=== PATIENT | male | born 1965 | race Two or more races ===

== ENCOUNTER 2019-12-15 06:53 | Outpatient (REF) | payer OTHER, SELFPAY | END 2019-12-15 06:54 | disposition home or self-care (01) | LOC: HO.LAB 06:53 | PROVIDERS: PCP Family Medicine; Visit Provider Internal Medicine | DX: Z20.828 Contact with and (suspected) exposure to other viral communicable diseases (principal) | CPT/HCPCS: 36415; 87635 ==

== ENCOUNTER 2020-03-24 10:10 | Outpatient (REF) | payer OTHER, SELFPAY ==
--- NOTE | 2020-03-24 10:16 | XR_ITS ---
EXAMINATION: XR HAND, RIGHT XR HAND, LEFT CLINICAL INFORMATION: Pain bilateral hands COMPARISON: Radiographs right hand 06/11/2017 TECHNIQUE: Each hand is imaged in 3 views. There are a total of 6 views. FINDINGS: Right hand: There is no acute or healing fracture, dislocation, or destructive process. Bony mineralization appears normal. There is no periarticular demineralization. There is some minor spurring base distal phalanges. No joint narrowing or erosive change. There is a punctate density lateral side fourth finger adjacent to neck middle phalanx similar to prior exam 06/11/2017. Left hand: There is no acute or healing fracture, dislocation, or destructive process. Bony mineralization appears normal. There is no periarticular demineralization. There is some minor spurring base distal phalanges. No joint narrowing or erosive change. There are 2 punctate soft tissue densities adjacent to head first proximal phalanx. XR/XR hand LT min 3V IMPRESSION: 1. Minor spurring base distal phalanges. 2. No joint narrowing or erosive change.
--- NOTE | 2020-03-24 10:16 | XR_ITS ---
EXAMINATION: XR HAND, RIGHT XR HAND, LEFT CLINICAL INFORMATION: Pain bilateral hands COMPARISON: Radiographs right hand 06/11/2017 TECHNIQUE: Each hand is imaged in 3 views. There are a total of 6 views. FINDINGS: Right hand: There is no acute or healing fracture, dislocation, or destructive process. Bony mineralization appears normal. There is no periarticular demineralization. There is some minor spurring base distal phalanges. No joint narrowing or erosive change. There is a punctate density lateral side fourth finger adjacent to neck middle phalanx similar to prior exam 06/11/2017. Left hand: There is no acute or healing fracture, dislocation, or destructive process. Bony mineralization appears normal. There is no periarticular demineralization. There is some minor spurring base distal phalanges. No joint narrowing or erosive change. There are 2 punctate soft tissue densities adjacent to head first proximal phalanx. XR/XR hand RT min 3V IMPRESSION: 1. Minor spurring base distal phalanges. 2. No joint narrowing or erosive change.
== END 2020-03-24 10:11 | disposition home or self-care (01) ==
LOC: HO.XRAY 10:10
PROVIDERS: PCP Family Medicine; Visit Provider Family Medicine
DX: M79.641 Pain in right hand (principal); M79.642 Pain in left hand; R20.0 Anesthesia of skin
CPT/HCPCS: 73130

== ENCOUNTER 2020-04-12 08:35 | Outpatient (REF) | payer OTHER, SELFPAY ==
--- NOTE | 2020-04-12 10:07 | XR_ITS ---
EXAMINATION: XR ABDOMEN WITH DECUBITUS VIEWS CLINICAL INDICATION: Abdominal distention. COMPARISON: CT abdomen/dated 03/08/2019. TECHNIQUE: Upright and supine views of the abdomen were obtained. FINDINGS: Qpxq-en-cyjyqmjt stool burden. Nonobstructive bowel gas pattern. No intra-abdominal free air. No abnormal soft tissue calcification. No acute osseous abnormality. XR/XR abdomen w decubitus IMPRESSION: Fyon-[id number] stool burden.
== END 2020-04-12 08:36 | disposition home or self-care (01) ==
LOC: HO.XRAY 08:35
PROVIDERS: PCP Family Medicine; Visit Provider Nurse Practitioner
DX: R14.0 Abdominal distension (gaseous) (principal)
CPT/HCPCS: 74021; 99212

== ENCOUNTER 2020-04-20 11:42 | Outpatient (REF) | payer OTHER, SELFPAY | END 2020-04-20 11:43 | disposition home or self-care (01) | LOC: HO.LAB 11:42 | PROVIDERS: Visit Provider Internal Medicine | DX: Z20.822 Contact with and (suspected) exposure to COVID-19 (principal) | CPT/HCPCS: 36415; C9803; U0003; U0005 ==

== ENCOUNTER 2020-04-27 10:50 | Outpatient (REF) | payer OTHER, SELFPAY ==
[2020-04-27 14:54] LABS: MANUAL DIFF FLAG NO
[2020-04-27 14:58] LABS: Basophils Percent Auto 0.3 % (0-2); Eosinophils Absolute Auto 0.1 X10*3/uL (0.0-0.4); Eosinophils Percent Auto 0.7 % (0-4); Hematocrit 46.3 % (42-52); Hemoglobin 15.4 g/dl (14.0-18.0); Imm Gran Abs Auto 0.02 X10*3/uL (0.00-0.03); Imm Gran Pct Auto 0.3 % (0.0-0.4); Lymphocytes Absolute Auto 2.4 X10*3/uL (1.2-4.9); Lymphocytes Percent Auto 32.6 % (20-40); Mean Corpuscular HGB Conc 33.3 g/dl (31.0-36.0); Mean Corpuscular Hemoglobin 29.8 pg (27.0-33.0); Mean Corpuscular Volume 89.7 fL (80-98); Mean Platelet Volume 9.8 fL (9.4-12.4); Monocytes Absolute Auto 0.9 X10*3/uL (0.1-1.2); Monocytes Percent Auto 12.6 % (2-11); Neutrophils Absolute Auto 3.9 X10*3/uL (2.0-8.3); Neutrophils Percent Auto 53.5 % (45-73); Platelet Count 278 X10*3/uL (160-400); Red Blood Count 5.16 X10*6/uL (4.60-5.80); Red Cell Distribution Width 13.1 % (11.0-16.0); White Blood Count 7.3 X10*3/uL (4.8-10.8)
[2020-04-27 15:25] LABS: Alanine Aminotransferase 85 U/L (0-40); Albumin Level 4.2 g/dL (3.5-5.0); Alkaline Phosphatase 53 U/L (39-117); Amylase 79 U/L (28-100); Anion Gap 13 (12-20); Aspartate Amino Transferase 47 U/L (5-37); Bilirubin Total 0.7 mg/dL (0.0-1.0); Blood Urea Nitrogen 16 mg/dL (9-16); C Reactive Protein 0.26 mg/dL (< or = 0.50); Calcium 8.9 mg/dL (8.4-10.2); Carbon Dioxide 33 mmol/L (22-29); Chloride 96 mmol/L (96-108); Estimated Glomerular Filt Rate 57; Glucose Random 82 mg/dL (60-115); Lactate Dehydrogenase 188 U/L (118-273); Lipase 47 U/L (8-78); Potassium 3.5 mmol/L (3.3-5.1); Sodium 138 mmol/L (135-145); Total Protein 7.6 g/dL (6.5-8.0)
[2020-04-27 15:47] LABS: TSH reflex Free T4 1.42 uIU/mL (0.32-4.0)
== END 2020-04-27 10:51 | disposition home or self-care (01) ==
LOC: HO.LAB 10:50
PROVIDERS: PCP Family Medicine; Visit Provider Nurse Practitioner
DX: R10.10 Upper abdominal pain, unspecified (principal); R14.0 Abdominal distension (gaseous)
CPT/HCPCS: 36415; 80053; 82150; 83615; 83690; 84443; 85025; 86140; 99212

== ENCOUNTER 2020-05-07 08:38 | Outpatient (REF) | payer OTHER, SELFPAY ==
--- NOTE | ~2020-05-07 | US_ITS ---
EXAMINATION: US ABDOMEN COMPLETE CLINICAL INFORMATION: Upper abdominal pain. COMPARISON: CT abdomen 03/08/2019 TECHNIQUE: Real-time imaging of the abdominal viscera. FINDINGS: PANCREAS: The visualized head and body of the pancreas appears unremarkable. Remainder of the pancreas is obscured by bowel gas. ABDOMINAL AORTA: The proximal, mid, and distal segments are normal in caliber. INFERIOR VENA CAVA: Visualized portions are normal. LIVER: Diffuse increased echogenicity of the parenchyma. No focal lesions. No biliary duct dilatation. There are areas of fatty sparing. GALLBLADDER: Normal. The gallbladder is physiologically distended without evidence of stones, sludge, polyps, wall thickening, or pericholecystic fluid. COMMON BILE DUCT: Normal in caliber measuring 0.5 cm in diameter. RIGHT KIDNEY: Normal. No hydronephrosis. No renal calculi or focal parenchymal lesions. The kidney measures 11.2 cm in maximum dimension. LEFT KIDNEY: Normal. No hydronephrosis. No renal calculi or focal parenchymal lesions. The kidney measures 12.9 cm in maximum dimension. SPLEEN: Normal. The spleen measures 10.4 cm in maximum dimension. FREE FLUID: None. US/US abdomen complete IMPRESSION: 1. There is generalized increase in hepatic echotexture, more commonly seen with hepatic steatosis. No focal hepatic mass or intrahepatic biliary duct dilatation is seen. Areas of fatty sparing are noted. 2. Otherwise unremarkable study.
== END 2020-05-07 08:39 | disposition home or self-care (01) ==
LOC: HO.US 08:38
PROVIDERS: PCP Family Medicine; Visit Provider Nurse Practitioner
DX: R10.10 Upper abdominal pain, unspecified (principal)
CPT/HCPCS: 76700

== ENCOUNTER 2020-05-17 13:00 | Outpatient (RCR) | payer OTHER, SELFPAY | END 2020-06-01 14:20 | disposition home or self-care (01) | LOC: HO.PTCHIC 13:00 | PROVIDERS: PCP Family Medicine; Visit Provider Family Medicine | DX: R29.898 Other symptoms and signs involving the musculoskeletal system (principal) | CPT/HCPCS: 97110; 97162 ==

== ENCOUNTER → 2020-05-19 15:30 | Outpatient (BNVA) | payer OTHER, SELFPAY | PROVIDERS: PCP Family Medicine; Visit Provider Nurse Practitioner | DX: R10.10 Upper abdominal pain, unspecified (principal); D12.6 Benign neoplasm of colon, unspecified; R14.0 Abdominal distension (gaseous) | CPT/HCPCS: Q3014 ==

== ENCOUNTER → 2020-07-30 07:45 | Outpatient (REF) | payer OTHER, SELFPAY ==
--- NOTE | ~2020-07-30 | NM_ITS ---
EXAMINATION: NM RADIONUCLIDE SOLID FOOD GASTRIC EMPTYING 4-HOUR STUDY CLINICAL INFORMATION: Upper abdominal pain. COMPARISON: None TECHNIQUE: A standard meal consisting of 4 oz of Egg Beaters brand tagged with 0.77 microcuries Tc-99m Sulfur Colloid, 8 oz water and 2 slices of toast with jelly was administered orally to the patient. Images were obtained using a dual head gamma camera in the anterior and posterior projections over of the stomach immediately post ingestion and at hourly intervals up to 4 hours post ingestion. The anterior and posterior counts at each time interval were averaged using the geometric mean and expressed as percentage of the immediate post ingestion counts. FINDINGS: There is good visualization of activity in the stomach immediately post ingestion. As the study progresses, there is good clearance of activity from the stomach and visualization of progressively increasing small bowel activity. By the end of the study, there is almost no retention noted in the stomach. Retention in the stomach at each time interval was: 1 hour 69% (normal 37%-90%) 2 hours 58% (normal 30%-60%) 3 hours 33% 4 hours 3% (normal 0%-10%) NM/NM gastric emptying study IMPRESSION: Normal 4-hour solid food gastric emptying study.
== END ==
LOC: HO.NUCMED 07:45
PROVIDERS: PCP Family Medicine; Visit Provider Nurse Practitioner
DX: R10.10 Upper abdominal pain, unspecified (principal); R14.0 Abdominal distension (gaseous)
CPT/HCPCS: 78264; A9541

== ENCOUNTER → 2020-08-06 12:58 | Outpatient (BNVA) | payer OTHER, SELFPAY | PROVIDERS: PCP Family Medicine; Referring Provider Family Medicine; Visit Provider Nurse Practitioner | DX: R10.10 Upper abdominal pain, unspecified (principal); Z79.899 Other long term (current) drug therapy | CPT/HCPCS: 99212 ==

== ENCOUNTER 2020-09-08 05:56 | Outpatient (REF) | payer OTHER, SELFPAY ==
--- NOTE | ~2020-09-08 | CT_ITS ---
EXAMINATION: CT ABDOMEN AND PELVIS WITH CONTRAST CLINICAL INFORMATION: Abdominal pain COMPARISON: None TECHNIQUE: Multidetector volumetric images were obtained from the superior aspect of the liver through the pubic symphysis following administration 85 mL of Omnipaque 350 intravenous contrast. Sagittal and coronal reformatted images were obtained on the technologist's workstation. Oral contrast: No This CT examination was performed using dose optimization techniques as appropriate, variously including the following: *Automated exposure control *Adjustment of mA and/or kV according to patient size (this includes techniques or standardized protocols for targeted exams where dose is matched to indication/reason for exam; i.e. extremities or head) *Use of iterative reconstruction technique DLP: 483 mGy-cm FINDINGS: LUNG BASES: No acute process in the lung bases. There is a 6 mm nodule left lower lobe (axial image 3/3) and 4 mm subpleural nodule right middle lobe (axial image 4/3). The heart size is normal. LIVER, GALLBLADDER, AND BILIARY TREE: The liver is normal in size, shape, and diffuse hypoattenuation. There is focal fatty sparing adjacent to gallbladder in the caudate lobe. No biliary ductal dilatation is present. The gallbladder is unremarkable with no evidence of radiopaque gallstones, gallbladder wall thickening, or obvious pericholecystic inflammatory changes. PANCREAS: Unremarkable. SPLEEN: Unremarkable. ADRENAL GLANDS: Unremarkable. KIDNEYS AND URETERS: The kidneys are normal in size, shape, and attenuation. No hydronephrosis, hydroureter, or calculi seen. No perinephric stranding. Bilateral 2 to 3 mm hypodense areas in the kidneys likely small cysts; however, there are too small to correctly characterize. BLADDER: Unremarkable. GASTROINTESTINAL TRACT: There is scattered stool and gas seen throughout the colon without significant distention. Opacified small bowel loops are normal caliber. Appendix is normal caliber. ABDOMINAL WALL: No significant hernia is appreciated. LYMPH NODES: Normal. VASCULAR: The abdominal aorta is normal caliber. There is a retroaortic left renal vein. PELVIC VISCERA: The prostate gland is mildly enlarged with mild heterogeneity and punctate calcification in central gland. No free fluid. No inguinal or pelvic abnormal-sized lymph nodes. Prominent inguinal canals, right greater than left, with fat. CT/CT abdomen pelvis w con IMPRESSION: 1. Mild constipation. 2. Normal appendix. 3. No radiopaque urolith seen. 4. Hepatic steatosis with area of focal fatty sparing.
[2020-09-08 07:31] LABS: Blood Urea Nitrogen 12 mg/dL (9-16); Estimated Glomerular Filt Rate 55
[2020-09-08] MEDS: iohexoL 350 MG/ML 100 ML INFUS..BTL 85 ML IV (09:30)
== END 2020-09-08 05:57 | disposition home or self-care (01) ==
LOC: HO.CT 05:56
PROVIDERS: PCP Family Medicine; Visit Provider Nurse Practitioner
DX: R10.10 Upper abdominal pain, unspecified (principal)
CPT/HCPCS: 36415; 74177; 82565; 84520; Q9967

== ENCOUNTER 2020-09-09 10:53 | Outpatient (REF) | payer OTHER, SELFPAY | END 2020-09-09 10:54 | disposition home or self-care (01) | LOC: HO.LNP 10:53 | PROVIDERS: Visit Provider Nurse Practitioner | DX: R10.10 Upper abdominal pain, unspecified (principal) | CPT/HCPCS: 87338 ==

== ENCOUNTER 2020-12-01 14:13 | Emergency (ER) | payer OTHER, SELFPAY ==
[2020-12-01 14:46] VITALS: BP 134/83; PULSE 72; RESP 16; TEMP 36.6; O2SAT 98; BMI 30.7
--- NOTE | 2020-12-01 14:55 | ED.EXTPRO ---
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 He states that his knee pain has been present for about 3-4 months, however these past 5 days that has been worsening. He states that he sees orthopedics, for arthritis of the knee, they have previously given him steroid shots, which have helped him. He is waiting for his appointment with his orthopedist, for another steroid injection, however it is taking awhile due to COVID. He states that he uses a cane for walking, and it helps his pain. He has full range of motion to the right knee, but he states it just hurts when he moves it. The pain is worse with movement, better at rest. He also reports that the pain is worse at night. He denies fevers, chills, shortness of breath, chest pain, decreased range of motion. He denies a fall, and trauma to the area. MD Complaint: joint paint (right knee) Onset (ago): day(s) (5) Pain Consistency: constant Location: right Severity scale (1-10): 6 Quality: constant Radiation: none Relieving factors: rest Exacerbating factors: range of motion, weight bearing and walking Associated symptoms: denies other symptoms Related Data Home Medications Medication Instructions Recorded Confirmed chlorthalidone 25 mg tablet 25 mg PO DAILY 04/12/20 clonazepam 1 mg tablet 1 mg PO TID PRN 04/12/20 clonidine HCl 0.2 mg tablet 0.2 mg PO BID 04/12/20 cyclobenzaprine 5 mg tablet 5 mg PO TID PRN 04/12/20 diclofenac sodium 75 mg 75 mg PO BID 04/12/20 tablet,delayed release melatonin 5 mg tablet 10 mg PO BEDTIME 04/12/20 omeprazole 20 mg capsule,delayed 20 mg PO BID 04/12/20 release duloxetine 60 mg capsule,delayed mg PO 05/19/20 release zolpidem 10 mg tablet 10 mg PO BEDTIME PRN 05/19/20 zolpidem 5 mg tablet 5 mg PO BEDTIME PRN 08/06/20 Previous Rx's Medication Instructions Recorded barium sulfate 2 % (w/v) oral 150 ml PO ONCE 1 Days #300 ml 08/06/20 suspension (Readi-Cat 2) simethicone 180 mg capsule 180 mg PO QID 30 Days #120 cap 08/23/20 dicyclomine 10 mg capsule 10 mg PO TID #90 cap 09/21/20 xrzevi-kxzyslvh-tocgvmx 1 cap PO QID #120 cap 09/21/20 24,000-76,000-120,000 unit capsule,delayed rel (Creon) diclofenac sodium 1 % topical gel 2 g TOPICAL QID #100 g 12/01/20 (Voltaren Arthritis Pain) lidocaine 4 % topical patch 1 patch TOPICAL DAILY PRN #10 ea 12/01/20 Allergies Allergy/AdvReac Type Severity Reaction Status Date / Time No Known Allergies Allergy Verified 08/06/20 13:29 [No Known Allergies*] Review of Systems Review of Systems: Constitutional : No Fever, No Chills Cardiovascular : No Chest Pain, No SOB Respiratory : No Cough, No Sputum, No Wheezing Gastrointestinal : No Nausea, No Vomiting, No Diarrhea Genitourinary : No Dysuria, No Urinary Frequency, No Hematuria, Musculoskeletal : Positive joint pain (right knee), No Myalgias, No Joint Swelling Skin : No Skin Lesions, No rash Neuro : No Weakness, No Numbness, No Dizziness, No Headache PMFSH Past Medical History Surgical History Hx of colonoscopy Family History Family History Mother Diabetes Father Cancer Sister Cancer Brother Cancer Social History Social History Household Members: None Alcohol intake: current Alcohol intake frequency: 3 or more drinks per day Alcohol type: beer and wine Advance Directives: No Advance Directives Information Provided: Yes Physical Exam Vital Signs: Vital Signs: Last Vital Signs Temp 98 F 12/01/20 14:46 Pulse 72 12/01/20 14:46 Resp 16 12/01/20 14:46 BP 134/83 12/01/20 14:46 Pulse Ox 98 12/01/20 14:46 Body Mass Index 30.7 Appearance: Alert. Oriented X3. No acute distress. Eyes: Pupils equal, round and reactive to light. ENT: Pharynx normal. Neck: Normal inspection. Neck supple. CVS: Normal heart rate and rhythm. Pulses normal. Respiratory: No respiratory distress. Breath sounds normal. Abdomen: Soft and nontender. Skin: Skin warm and dry. Normal skin color. Normal skin turgor. Extremities: No lower extremity edema. No calf ttp, Positive painful/full range of motion to right knee, no overlying skin changes, calor or effusions noted - distal NV intact Neuro: Oriented X 3. No motor deficit. No sensory deficit. Course Course Course Narrative: 55-year-old male presenting to the emergency department with 5 days of worsening right knee pain. He states he has arthritis, is followed by an orthopedist, however he is waiting to get his 2nd steroid injection, do to long wait times because of COVID. He states he would like information for a new orthopedist. Pain is worse with walking better at rest, and worse at night. He uses a cane for ambulation. He denies any other concerns at this time. MDM - Extremity (Nontraumatic) MDM Narrative Medical decision making narrative: Based off of patient history, and physical examination there is no need to do imaging at this time. It is likely arthritis. Discharge Plan Discharge Clinical Impression: Arthralgia of knee, right Patient Disposition: Home, Self-Care Instructions: Arthralgia (ED) Additional Instructions: return to ED for any worsening symptoms or concerns Prescriptions: New lidocaine 4 % adhesive patch,medicated 1 patch topical DAILY PRN (Reason: pain) Qty: 10 RF: 0 diclofenac sodium [Voltaren Arthritis Pain] 1 % gel 2 g topical QID Qty: 100 RF: 0 No Action simethicone 180 mg capsule 180 mg PO QID 30 Days Qty: 120 RF: 3 Creon 24,000-76,000 -120,000 unit capsule,delayed release(DR/EC) 1 cap PO QID Qty: 120 RF: 3 dicyclomine 10 mg capsule 10 mg PO TID Qty: 90 RF: 3 omeprazole 20 mg capsule,delayed release(DR/EC) 20 mg PO BID RF: 0 cyclobenzaprine 5 mg tablet 5 mg PO TID PRNRF: 0 diclofenac sodium 75 mg tablet,delayed release (DR/EC) 75 mg PO BID RF: 0 clonidine HCl 0.2 mg tablet 0.2 mg PO BID RF: 0 chlorthalidone 25 mg tablet 25 mg PO DAILY RF: 0 clonazepam 1 mg tablet 1 mg PO TID PRN (Reason: anxiety) RF: 0 melatonin 5 mg tablet 10 mg PO BEDTIME RF: 0 zolpidem 10 mg tablet 10 mg PO BEDTIME PRN (Reason: insomnia) RF: 0 duloxetine 60 mg capsule,delayed release(DR/EC) PO RF: 0 zolpidem 5 mg tablet 5 mg PO BEDTIME PRNRF: 0 Readi-Cat 2 2 % (w/v) suspension 150 ml PO ONCE 1 Days Qty: 300 RF: 0 Referrals: Kd Fernandez MD [Physician] - 2 weeks (if not better) Print Language: Indonesian
== END 2020-12-01 15:26 | disposition home or self-care (01) ==
PROVIDERS: Emergency Provider Emergency Medicine; PCP Family Medicine
DX: M25.561 Pain in right knee (principal); Z79.899 Other long term (current) drug therapy
CPT/HCPCS: 99283

== ENCOUNTER 2020-12-02 08:16 | Outpatient (REF) | payer OTHER, SELFPAY ==
[2020-12-02 10:36] LABS: MANUAL DIFF FLAG NO
[2020-12-02 10:45] LABS: Basophils Percent Auto 0.4 % (0-2); Eosinophils Absolute Auto 0.1 X10*3/uL (0.0-0.4); Eosinophils Percent Auto 0.8 % (0-4); Hematocrit 47.5 % (42-52); Hemoglobin 16.1 g/dl (14.0-18.0); Imm Gran Abs Auto 0.01 X10*3/uL (0.00-0.03); Imm Gran Pct Auto 0.1 % (0.0-0.4); Lymphocytes Absolute Auto 2.3 X10*3/uL (1.2-4.9); Lymphocytes Percent Auto 29.7 % (20-40); Mean Corpuscular HGB Conc 33.9 g/dl (31.0-36.0); Mean Corpuscular Volume 88.5 fL (80-98); Mean Platelet Volume 9.8 fL (9.4-12.4); Monocytes Absolute Auto 0.9 X10*3/uL (0.1-1.2); Monocytes Percent Auto 11.7 % (2-11); Neutrophils Absolute Auto 4.3 X10*3/uL (2.0-8.3); Neutrophils Percent Auto 57.3 % (45-73); Platelet Count 286 X10*3/uL (160-400); Red Blood Count 5.37 X10*6/uL (4.60-5.80); Red Cell Distribution Width 13.2 % (11.0-16.0); White Blood Count 7.6 X10*3/uL (4.8-10.8)
[2020-12-02 11:14] LABS: Alanine Aminotransferase 90 U/L (0-40); Albumin Level 4.5 g/dL (3.5-5.0); Alkaline Phosphatase 58 U/L (39-117); Aspartate Amino Transferase 44 U/L (5-37); Bilirubin Direct 0.3 mg/dL (0.0-0.5); Bilirubin Total 0.6 mg/dL (0.0-1.0); Total Protein 7.9 g/dL (6.5-8.0)
[2020-12-02 12:16] LABS: Folate 10.5 ng/mL (> or = 4.0)
== END 2020-12-02 08:17 | disposition home or self-care (01) ==
LOC: HO.LAB 08:16
PROVIDERS: PCP Family Medicine; Referring Provider Family Medicine; Visit Provider Internal Medicine Gastroenterology
DX: R14.0 Abdominal distension (gaseous) (principal); D12.6 Benign neoplasm of colon, unspecified; K76.0 Fatty (change of) liver, not elsewhere classified; R79.89 Other specified abnormal findings of blood chemistry
CPT/HCPCS: 36415; 80076; 82746; 85025; 99212

== ENCOUNTER 2021-02-14 08:05 | Outpatient (REF) | payer OTHER, SELFPAY ==
[2021-02-14 09:00] LABS: COVID-19 Test Negative (Negative)
== END 2021-02-14 08:06 | disposition home or self-care (01) ==
LOC: HO.LAB 08:05
PROVIDERS: PCP Family Medicine; Visit Provider Internal Medicine
DX: Z20.822 Contact with and (suspected) exposure to COVID-19 (principal)
CPT/HCPCS: 36415; 87635; C9803

== ENCOUNTER 2021-03-31 09:05 | Outpatient (REF) | payer OTHER, SELFPAY ==
[2021-03-31 11:45] LABS: Lipase 72 U/L (8-78)
[2021-03-31 11:57] LABS: TSH reflex Free T4 1.21 uIU/mL (0.32-4.0)
[2021-04-01 13:41] LABS: Immunoglobulin A 539 mg/dL (47-310)
[2021-04-02 13:11] LABS: Transglutaminase Ab IgG <1.0 U/mL; Transglutaminase IgA <1.0 U/mL
== END 2021-03-31 09:06 | disposition home or self-care (01) ==
LOC: HO.LAB 09:05
PROVIDERS: PCP Family Medicine; Visit Provider Internal Medicine Gastroenterology
DX: R10.10 Upper abdominal pain, unspecified (principal); K52.9 Noninfective gastroenteritis and colitis, unspecified; D12.6 Benign neoplasm of colon, unspecified; R14.0 Abdominal distension (gaseous)
CPT/HCPCS: 36415; 82784; 83690; 84443; 86364; 99212

== ENCOUNTER 2021-04-01 09:42 | Outpatient (REF) | payer OTHER, SELFPAY ==
[2021-04-01 13:02] LABS: CDiff Gene PCR NEGATIVE (Negative)
[2021-04-05 20:46] LABS: Fecal Fat Qualitative Normal (Normal)
[2021-04-06 22:07] LABS: Pancreatic Elastase-1 >500 mcg/g
== END 2021-04-01 09:43 | disposition home or self-care (01) ==
LOC: HO.LNP 09:42
PROVIDERS: Visit Provider Internal Medicine Gastroenterology
DX: K52.9 Noninfective gastroenteritis and colitis, unspecified (principal)
CPT/HCPCS: 82656; 82705; 87045; 87046; 87493

== ENCOUNTER 2021-04-29 13:44 | Emergency (ER) | payer OTHER, SELFPAY ==
--- NOTE | 2021-04-29 13:49 | ECG_ITS ---
Test Reason : chest pain Blood Pressure : / mmHG Vent. Rate : 083 BPM Atrial Rate : 083 BPM P-R Int : 154 ms QRS Dur : 092 ms QT Int : 370 ms P-R-T Axes : 030 -06 009 degrees QTc Int : 434 ms Normal sinus rhythm Normal ECG When compared to the previous EKG of No significant changes seen Referred By: Generic ED Physician Electronically Signed By:SURINDER REYES MD
== END 2021-04-29 15:34 | disposition left against medical advice (07) ==
PROVIDERS: Emergency Provider Emergency Medicine; PCP Family Medicine
DX: R07.9 Chest pain, unspecified (principal)
CPT/HCPCS: 93005; 99281; 99283

== ENCOUNTER 2021-05-31 06:25 | Outpatient (REF) | payer OTHER, SELFPAY ==
[2021-05-31 08:04] LABS: Estimated Average Glucose 108 mg/dL; Hemoglobin A1c % 5.4 %
[2021-05-31 08:10] LABS: Cholesterol 175 mg/dL; HDL Cholesterol 37 mg/dL
[2021-05-31 08:12] LABS: LDL Cholesterol Calculated 108 mg/dl; Triglycerides 154 mg/dL
[2021-05-31 08:32] LABS: TSH reflex Free T4 2.27 uIU/mL (0.32-4.0)
[2021-05-31 14:24] LABS: CT PCR NOT DETECTED (Not Detect.); NG PCR NOT DETECTED (Not Detect.)
[2021-06-01 07:39] LABS: Syphilis Screen Nonreactive (Nonreactive)
[2021-06-01 07:44] LABS: HIV AB/AG Nonreactive (Nonreactive); Hepatitis B Surface Antigen Negative (Negative)
[2021-06-01 08:20] LABS: ~HepC Num1 0.09 S/CO (0.00-0.79); ~Hepatitis C Antibody Nonreactive (Nonreactive)
[2021-06-02 15:30] LABS: Anti Nuclear Antibody Screen NEGATIVE (NEGATIVE)
[2021-06-06 16:16] LABS: Vitamin D 25-OH, D2 6 ng/mL; Vitamin D 25-OH, D3 18 ng/mL; Vitamin D 25-OH, Total 24 ng/mL (30-100)
== END 2021-05-31 06:26 | disposition home or self-care (01) ==
LOC: HO.LAB 06:25
PROVIDERS: PCP Family Medicine; Visit Provider Family Medicine
DX: Z01.84 Encounter for antibody response examination (principal); Z11.4 Encounter for screening for human immunodeficiency virus [HIV]; Z11.3 Encounter for screening for infections with a predominantly sexual mode of transmission; E78.5 Hyperlipidemia, unspecified; I10 Essential (primary) hypertension; M79.7 Fibromyalgia; R73.01 Impaired fasting glucose
CPT/HCPCS: 36415; 80061; 82306; 83036; 84443; 86038; 86039; 86780; 86803; 87340; 87389; 87491; 87591

== ENCOUNTER → 2021-06-16 12:45 | Outpatient (BNVA) | payer OTHER, SELFPAY | PROVIDERS: PCP Family Medicine; Referring Provider Family Medicine; Visit Provider Internal Medicine Gastroenterology | DX: R19.7 Diarrhea, unspecified (principal); R14.0 Abdominal distension (gaseous); K76.0 Fatty (change of) liver, not elsewhere classified; K21.9 Gastro-esophageal reflux disease without esophagitis; D12.6 Benign neoplasm of colon, unspecified; Z79.899 Other long term (current) drug therapy | CPT/HCPCS: Q3014 ==

== ENCOUNTER 2021-07-08 10:34 | Day surgery (SDC) | payer OTHER, SELFPAY ==
[2021-07-05 10:32] VITALS: BMI 29.9
--- NOTE | 2021-07-07 12:14 | HO.ANESPROP2 ---
Documented by User: Jyotsna Barba NP 07/07/21 12:15 HPI - Anesthesia Eval Consult details Narrative: 56yo M for Upper Endoscopy and Colonoscopy [facility] Active Problems Active Problems: All Active Problems (Updated 07/05/21 @ 10:38 by Belle Tan RN) Abdominal bloating (Acute) Tubular adenoma of colon (Acute) Abdominal cramping (Acute) Upper abdominal pain (Acute) Abdominal pain (Acute) Elevated LFTs (Acute) NAFL (nonalcoholic fatty liver) (Acute) Postprandial diarrhea (Acute) Past Medical History Medical History (Updated 07/05/21 @ 10:38 by Belle Tan RN) Anxiety and depression Arthritis Back pain Diarrhea GERD (gastroesophageal reflux disease) HTN (hypertension) Insomnia Family History Family History Mother Diabetes Father Cancer Sister Cancer Brother Cancer Surgical History Surgical History (Updated 07/05/21 @ 10:38 by Belle Tan RN) History of esophagogastroduodenoscopy (EGD) Hx of colonoscopy Social History Social History Household Members: None Alcohol intake: current Alcohol intake frequency: holidays/special occasions only Alcohol type: beer and wine Patient Tobacco Use Status: Never used Tobacco Use of substances other than those prescribed or required for medical reasons: No Are you DNR?: No Advance Directives: No Advance Directives Information Provided: Yes Advance Directives on File: No Meds Allergies Allergy/AdvReac Type Severity Reaction Status Date / Time No Known Allergies Allergy Verified 07/05/21 10:29 [No Known Allergies*] Home Medications Medication Instructions Recorded Confirmed Last Taken Type chlorthalidone 25 mg tablet 25 mg PO DAILY 04/12/20 07/05/21 Unknown History clonazepam 1 mg tablet 1 mg PO TID PRN 04/12/20 07/05/21 Unknown History clonidine HCl 0.2 mg tablet 0.2 mg PO BID 04/12/20 06/16/21 Unknown History cyclobenzaprine 5 mg tablet 5 mg PO TID PRN 04/12/20 07/05/21 Unknown History diclofenac sodium 75 mg 75 mg PO BID 04/12/20 07/05/21 Unknown History tablet,delayed release melatonin 5 mg tablet 10 mg PO BEDTIME 04/12/20 06/16/21 Unknown History omeprazole 20 mg capsule,delayed 20 mg PO BID 04/12/20 07/05/21 Unknown History release duloxetine 60 mg capsule,delayed 60 mg PO DAILY 05/19/20 07/05/21 Unknown History release zolpidem 10 mg tablet 5 - 10 mg PO BEDTIME PRN 05/19/20 07/05/21 Unknown History dicyclomine 10 mg capsule 10 mg PO TID PRN 07/05/21 07/05/21 Unknown History Exam Exam Date and Time: July 07, 2021 1214 Height,Weight and Vital Signs: Height 5 ft 10 in Weight 94.801 kg Assessment and Plan Assessment Anesthesia Assessment: Chart Reviewed Documented by User: Gabriella Park MD 07/08/21 12:08 [facility] Past Medical History Medical History (Updated 07/05/21 @ 10:38 by Belle Tan, DONNA) Anxiety and depression Arthritis Back pain Diarrhea GERD (gastroesophageal reflux disease) HTN (hypertension) Insomnia Family History Family History Mother Diabetes Father Cancer Sister Cancer Brother Cancer Family history of problems with anesthesia: No Surgical History Surgical History (Updated 07/05/21 @ 10:38 by Belle Tan RN) History of esophagogastroduodenoscopy (EGD) Hx of colonoscopy History of Problems with Anesthesia: No Social History Social History Household Members: None Alcohol intake: current Alcohol intake frequency: holidays/special occasions only Alcohol type: beer and wine Patient Tobacco Use Status: Never used Tobacco Use of substances other than those prescribed or required for medical reasons: No Are you DNR?: No Advance Directives: No Advance Directives Information Provided: Yes Advance Directives on File: No Meds Allergies Allergy/AdvReac Type Severity Reaction Status Date / Time No Known Allergies Allergy Verified 07/05/21 10:29 [No Known Allergies*] Home Medications Medication Instructions Recorded Confirmed Last Taken Type chlorthalidone 25 mg tablet 25 mg PO DAILY 04/12/20 07/05/21 Unknown History clonazepam 1 mg tablet 1 mg PO TID PRN 04/12/20 07/05/21 Unknown History clonidine HCl 0.2 mg tablet 0.2 mg PO BID 04/12/20 06/16/21 Unknown History cyclobenzaprine 5 mg tablet 5 mg PO TID PRN 04/12/20 07/05/21 Unknown History diclofenac sodium 75 mg 75 mg PO BID 04/12/20 07/05/21 Unknown History tablet,delayed release melatonin 5 mg tablet 10 mg PO BEDTIME 04/12/20 06/16/21 Unknown History omeprazole 20 mg capsule,delayed 20 mg PO BID 04/12/20 07/05/21 Unknown History release duloxetine 60 mg capsule,delayed 60 mg PO DAILY 05/19/20 07/05/21 Unknown History release zolpidem 10 mg tablet 5 - 10 mg PO BEDTIME PRN 05/19/20 07/05/21 Unknown History dicyclomine 10 mg capsule 10 mg PO TID PRN 07/05/21 07/05/21 Unknown History Exam Airway Mallampati Class: III TM Dist: >3cm Neck ROM: Full Heart: rrr Lungs: cta Assessment and Plan Assessment Anesthesia Assessment: Anesthesia Plan Discussed and Chart Reviewed Final Anesthetic Review Family History of Problems with Anesthesia: No History of Problems with Anesthesia: No NPO: Yes ASA Class: II Final Preanesthetic Review: No Changes in Pt Med Stat, Meds/Allgs Chart Reviewed and Consent Obtained/Reviewed Patient Risk: Intermediate Procedure Risk: Intermediate Anesthetic Plan Anesthetic Plan: MAC: Disposition: Standard PACU
[2021-07-08 11:49] VITALS: BP 108/67; PULSE 54; RESP 18; TEMP 36.4; O2SAT 97
[2021-07-08] MEDS: Lactated Ringers 1,000 ML 100 ML IVCONT (12:01)
--- NOTE | 2021-07-08 12:12 | MHC.SHP ---
Pre-Procedural Eval Section A Date of Service: 07/08/21 The patient is an INPATIENT: No Changes since office visit: Yes Patient answered all questions; No Cold of Flu in the past 2 weeks, No New Medical Problems and No Changes in Medication The History & Physical has been completed within 30 days and I have reviewed it.: Yes Section B Chief Complaint: Abdominal distension (gaseous),benign neoplasm col Details of Present Illness: abdominal pain, bloating and postprandial diarrhea Allergies: Allergies Allergy/AdvReac Type Severity Reaction Status Date / Time No Known Allergies Allergy Verified 07/05/21 10:29 [No Known Allergies*] Plan Diagnosis/Plan: Change (Proceed with EGD. Colonoscopy to be rescheduled since patient ate solid food all day yeseterday) I have reviewed the history and physical and performed a pertinent physical examination on my patient. No changes have occurred unless specified.
[2021-07-08 12:31] VITALS: BP 95/61; PULSE 68; RESP 16; TEMP 36.7; O2SAT 97
--- NOTE | 2021-07-08 12:32 | P.BOP_ITS ---
Brief Operative Note Date of Service: 07/08/21 Pre-op diagnosis: GERD, abdominal pain, bloating, postprandial diarrhea Post-op diagnosis: other (GERD, gastritis, gastric antral [id number] cms) Procedure: FLEXIBLE TRANSORAL UPPER GASTROINTESTINAL ENDOSCOPY WITH BIOPSIES Consent: Indications for the procedure and potential complications of bleeding, perforation, reaction to medications and missed diagnosis were discussed with the patient and informed consent was obtained. Instrument: Olympus GIF H 190 mid size upper endoscope Monitoring: Vital signs and clinical assessment, continuous EKG monitoring, Pulse oximetry, Carbon Dioxide monitoring and blood pressure monitoring were done throughout the procedure. Procedure: The patient was placed in the left lateral decubitis position and pre-procedure medications were administered and a bite block was placed. The endoscope was inserted into the mouth and advanced under direct vision to the third part of duodenum. A careful inspection was made as the upper endoscope was withdrawn including a retroflexed examination of the proximal stomach; Findings and interventions are described below. Findings: Larynx: Normal Esophagus: GE junction at 38 cms, small hiatal hernia 38 to 40 cms. Stomach: Moderate diffuse gastric erythema with nodular appearing gastric mucosa in the gastric body. Biopsies were obtained from the antrum and body of the stomach. A 12-15 mm benign appearing nodule in the pre-pyloric area - biopsied. Grade 2 flap valve on retroflexed examination of the cardia. Duodenum: Normal bulb and descending duodenum Intervention: Biopsies as noted above Impression and Post Procedure Diagnosis: Endoscopy Findings: ESOPHAGUS: Small hiatal hernia STOMACH: Moderate diffuse gastric erythema with nodular appearing gastric mucosa in the gastric body. Biopsies were obtained from the antrum and body of the stomach. A 12-15 mm benign appearing nodule in the pre-pyloric area - biopsied. DUODENUM: Normal - biopsied for celiac sprue Plan: Await pathology results Patient has an appointment on 09/29/21 in the [facility] with Claudia Jones M.D. Pt needs to reschedule his appointment for a colonoscopy since he ate solid food all day yesterday GERD handout was given in the discharge area Surgeon: Claudia Jones MD Anesthesia: MAC (Dr Whipple) Was an Tourist Camp Attendant used for this Procedure?: Yes Tourist Camp Attendant: Jade Thompson Estimated blood loss (mL): 0 Pathology: other ( A. small bowel bxs, R/O sprue B. gastric nodule bxs C. gastric antrum bxs, R/O H. pylori D. gastric body bxs) Condition: stable Disposition: PACU
[2021-07-08 12:46] VITALS: BP 92/61; PULSE 65; RESP 18; O2SAT 97
[2021-07-08 13:01] VITALS: BP 105/75; PULSE 64; RESP 18; TEMP 37; O2SAT 97
--- NOTE | 2021-07-08 14:54 | P.OP_ITS ---
Operative Note Operative Note Date of Service: 07/08/21 Narrative: Pre-op diagnosis: GERD, abdominal pain, bloating, postprandial diarrhea Post-op diagnosis:?other (GERD, gastritis, gastric antral [id number] cms) Procedure: FLEXIBLE TRANSORAL UPPER GASTROINTESTINAL ENDOSCOPY WITH BIOPSIES Consent:?Indications for the procedure and potential complications of bleeding, perforation, reaction to medications and missed diagnosis were discussed with the patient and informed consent was obtained. Instrument:?Olympus GIF H 190 mid size upper endoscope Monitoring: Vital signs and clinical assessment, continuous EKG monitoring, Pulse oximetry, Carbon Dioxide monitoring and blood pressure monitoring were done throughout the procedure. Procedure:?The patient was placed in the left lateral decubitis position and pre-procedure medications were administered and a bite block was placed. The endoscope was inserted into the mouth and advanced under direct vision to the third part of duodenum. A careful inspection was made as the upper endoscope was withdrawn including a retroflexed examination of the proximal stomach; Findings and interventions are described below. Findings: Larynx:? Normal Esophagus: GE junction at 38 cms, small hiatal hernia 38 to 40 cms. Stomach: Moderate diffuse gastric erythema with nodular appearing gastric mucosa in the gastric body.? Biopsies were obtained from the antrum and body of the stomach. A 12-15 mm benign appearing nodule in the pre-pyloric area - biopsied. Grade 2 flap valve on retroflexed examination of the cardia. Duodenum: Normal bulb and descending duodenum Intervention: Biopsies as noted above Impression and Post Procedure Diagnosis: Endoscopy Findings: ESOPHAGUS: Small hiatal hernia STOMACH: Moderate diffuse gastric erythema with nodular appearing gastric mucosa in the gastric body.? Biopsies were obtained from the antrum and body of the stomach. A 12-15 mm benign appearing nodule in the pre-pyloric area - biopsied. DUODENUM: Normal - biopsied for celiac sprue Plan: Patient has an appointment on 09/29/21 in the GI Clinic with Claudia Jones M.D. Pt needs to reschedule his appointment for a colonoscopy since he ate solid food all day yesterday GERD handout was given in the discharge area Surgeon: Claudia Jones MD Anesthesia:?MAC (Dr Whipple) Was an [employer] Supervisor used for this Procedure?:?Yes [employer] Supervisor:?Jade hTompson Estimated blood loss (mL):?0 Pathology:?other ( A. small bowel bxs, R/O sprue? B. gastric nodule bxs? C. gastric antrum bxs, R/O H. pylori? D. gastric body bxs) Condition:?stable Disposition:?PACU
== END 2021-07-08 13:30 | disposition home or self-care (01) ==
PROVIDERS: PCP Family Medicine; Visit Provider Internal Medicine Gastroenterology
PROC: (CPT 43239; principal; 2021-07-08 13:20)
DX: K29.50 Unspecified chronic gastritis without bleeding (principal); K31.7 Polyp of stomach and duodenum; K52.9 Noninfective gastroenteritis and colitis, unspecified; K21.9 Gastro-esophageal reflux disease without esophagitis; K76.0 Fatty (change of) liver, not elsewhere classified; K44.9 Diaphragmatic hernia without obstruction or gangrene; R79.89 Other specified abnormal findings of blood chemistry; I10 Essential (primary) hypertension; Z79.899 Other long term (current) drug therapy; Z80.0 Family history of malignant neoplasm of digestive organs
CPT/HCPCS: 43239; 88305; 88342

== ENCOUNTER → 2021-09-29 11:02 | Outpatient (BNVA) | payer OTHER, SELFPAY | PROVIDERS: PCP Family Medicine; Visit Provider Internal Medicine Gastroenterology | DX: R14.0 Abdominal distension (gaseous) (principal); R10.10 Upper abdominal pain, unspecified; R79.89 Other specified abnormal findings of blood chemistry; K76.0 Fatty (change of) liver, not elsewhere classified; K52.9 Noninfective gastroenteritis and colitis, unspecified; M25.50 Pain in unspecified joint; E55.9 Vitamin D deficiency, unspecified; Z86.010 Personal history of colon polyps; Z98.890 Other specified postprocedural states | CPT/HCPCS: 99212 ==

== ENCOUNTER 2021-12-30 11:54 | Day surgery (SDC) | payer OTHER, SELFPAY ==
[2021-12-30 12:35] VITALS: BP 116/73; PULSE 44; RESP 15; TEMP 36.2; O2SAT 99; BMI 29.1
[2021-12-30] MEDS: Lactated Ringers 1,000 ML 100 ML IVCONT (12:46)
--- NOTE | 2021-12-30 12:57 | MHC.SHP ---
Pre-Procedural Eval Section A Date of Service: 12/30/21 Section B Chief Complaint: Abdominal distension,Benign neoplasm of colon, Relevant Family History (Specify if Yes): Yes Relevant Social History: None Present Medications: see Short Stay Collaborative assessment Medical History: Significant History (Anxiety and depression Arthritis Back pain Diarrhea GERD (gastroesophageal reflux disease) HTN (hypertension) Insomnia) History of Previous Operations: Relevant previous surgery/procedure and date(s) (status post EGD and Colon) Allergies: Allergies Allergy/AdvReac Type Severity Reaction Status Date / Time No Known Allergies Allergy Verified 12/30/21 12:32 [No Known Allergies*] Review of Systems Sugical H&P ROS: Negative: Constitution, Cardiovascular, Respiratory and Gastrointestinal Exam Surgical H&P Exam: Normal: Heart, Normal: Lungs, Normal: Extremities and Normal: Abdomen Plan Diagnosis/Plan: Unchanged I have reviewed the history and physical and performed a pertinent physical examination on my patient. No changes have occurred unless specified.
--- NOTE | 2021-12-30 13:01 | P.OP_ITS ---
Operative Note Operative Note Date of Service: 12/30/21 Narrative: Pre-op diagnosis: colon cancer screening, left upper quadrant pain, postprandial diarrhea, family history of colon cancer (brother in his 50's) Post-op diagnosis:?other ( colon polyp, diverticulosis, hemorrhoids) Procedure: COLONOSCOPY TILL CECUM WITH BIOPSIES AND SNARE POLYPECTOMY Consent: Indications for the procedure and potential complications of bleeding, perforation, reaction to medications and missed diagnosis were discussed with the patient and informed consent was obtained. Instrument: Olympus PCF H 190 L variable stiffness pediatric colonoscope Monitoring: Vital signs and clinical assessment, intermittent blood pressure monitoring, continuous EKG monitoring, Pulse oximetry and Carbon Dioxide monitoring were done throughout the procedure. Colon withdrawl time was 21 minutes. Procedure: The patient was placed in the left lateral decubitis position and pre-procedure medications were administered. After a digital rectal examination of the ano-rectum, the video colonoscope was inserted into the rectum and advanced through the colon to the cecum. The colonoscope was slowly withdrawn in a retrograde panoramic fashion and the colon mucosa was carefully examined including a retroflexed view of the rectum. Findings and interventions are described below. Procedure Difficulty: Without difficulty Findings: Terminal Ileum: Not evaluated Cecum:? Normal Ascending Colon:? Normal Transverse Colon:? Normal Descending Colon:? Normal Sigmoid Colon:? Moderate diverticulosis Rectum:? One 7 to 8 mm sessile polyp removed with a cold snare. Ano-rectum:? Small internal hemorrhoids Colon preparation:? Good after some irrigation Impression and Post Procedure Diagnosis: Colonoscopy Findings: One small polyp removed Mild diverticulosis seen in the sigmoid colon Small hemorrhoids on retroflexed exam. Plan: Await pathology results Patient has an appointment on & 02/09/22 in the GI Clinic with Claudia Jones M.D.. Repeat Colonoscopy interval based on path results - in 5 years if polyps are adenomatous and 10 years if polyps are hyperplastic. Above findings were reviewed with the patient and colon polyps and diverticulosis handouts were given in the discharge area Surgeon: Claudia Jones MD Anesthesia:?MAC Was an Adjunct Writing Instructor used for this Procedure?:?Yes Adjunct Writing Instructor:?Jade Thompson Estimated blood loss (mL):?0 Pathology:?other (A. random right-sided colon bxs, R/O microscopic colitis? B. left colon bxs, R/O microscopic colitis? C. rectal polyp) Condition:?stable Disposition:?PACU
[2021-12-30 13:50] VITALS: BP 107/68; PULSE 52; RESP 14; TEMP 36.8; O2SAT 98
--- NOTE | 2021-12-30 13:51 | HO.ANESPROP2 ---
[facility] Active Problems Active Problems: All Active Problems (Updated 09/29/21 @ 11:28 by Claudia Jones MD) Joint pain (Acute) Abdominal bloating (Acute) Tubular adenoma of colon (Acute) Abdominal cramping (Acute) Upper abdominal pain (Acute) Abdominal pain (Acute) Elevated LFTs (Acute) NAFL (nonalcoholic fatty liver) (Acute) Postprandial diarrhea (Acute) Past Medical History Medical History Anxiety and depression Arthritis Back pain Diarrhea GERD (gastroesophageal reflux disease) HTN (hypertension) Insomnia Family History Family History Mother Diabetes Father Cancer Sister Cancer Brother Cancer Family history of problems with anesthesia: No Surgical History Surgical History History of esophagogastroduodenoscopy (EGD) Hx of colonoscopy History of Problems with Anesthesia: No Social History Social History Household Members: None Alcohol intake: current Alcohol intake frequency: holidays/special occasions only Alcohol type: beer and wine Patient Tobacco Use Status: Never used Tobacco Use of substances other than those prescribed or required for medical reasons: No Are you DNR?: No Advance Directives: No Advance Directives Information Provided: Yes Meds Allergies Allergy/AdvReac Type Severity Reaction Status Date / Time No Known Allergies Allergy Verified 12/30/21 12:32 [No Known Allergies*] Active Medications: Current Medications Lactated Ringer's (Lr) 1,000 mls @ 100 mls/hr IVCONT .Q10H MIKA Last Admin: 12/30/21 12:46 Dose: 100 mls/hr Home Medications Medication Instructions Recorded Confirmed Last Taken Type chlorthalidone 25 mg tablet 25 mg PO DAILY 04/12/20 12/26/21 Unknown History clonazepam 1 mg tablet 1 mg PO TID PRN anxiety 04/12/20 12/26/21 12/30/21 06:30 History cyclobenzaprine 5 mg tablet 5 mg PO TID PRN Pain 04/12/20 12/26/21 Unknown History diclofenac sodium 75 mg 75 mg PO BID 04/12/20 12/26/21 Unknown History tablet,delayed release melatonin 5 mg tablet 10 mg PO BEDTIME 04/12/20 12/26/21 Unknown History omeprazole 20 mg capsule,delayed 20 mg PO BID 04/12/20 12/26/21 12/30/21 06:30 History release duloxetine 60 mg capsule,delayed 60 mg PO DAILY 05/19/20 12/26/21 Unknown History release zolpidem 10 mg tablet 5 - 10 mg PO BEDTIME PRN insomnia 05/19/20 12/26/21 Unknown History Exam Exam Date and Time: December 30, 2021 1351 Height,Weight and Vital Signs: Height 5 ft 10 in Weight 92.079 kg Last Vital Signs Temp 97.2 F 12/30/21 12:35 Pulse 44 L 12/30/21 12:35 Resp 15 12/30/21 12:35 BP 116/73 12/30/21 12:35 Pulse Ox 99 12/30/21 12:35 O2 Del Method 12/30/21 12:35 Airway Mallampati Class: III TM Dist: >3cm Neck ROM: Full Assessment and Plan Assessment Anesthesia Assessment: Anesthesia Plan Discussed and Chart Reviewed Final Anesthetic Review Family History of Problems with Anesthesia: No History of Problems with Anesthesia: No NPO: Yes ASA Class: II Final Preanesthetic Review: No Changes in Pt Med Stat, Meds/Allgs Chart Reviewed, Consent Obtained/Reviewed and Anes Risks/Benef Reviewed Patient Risk: Low Anesthetic Plan Anesthetic Plan: MAC: Disposition: Standard PACU
[2021-12-30 14:05] VITALS: BP 121/79; PULSE 49; RESP 16; TEMP 36.8; O2SAT 99
== END 2021-12-30 14:50 | disposition home or self-care (01) ==
PROVIDERS: PCP Family Medicine; Visit Provider Internal Medicine Gastroenterology
PROC: 0DJD8ZZ Inspection of Lower Intestinal Tract, Via Natural or Artificial Opening Endoscopic (ICD-10-PCS; CPT 45378; principal; 2021-12-30 13:10)
DX: Z12.11 Encounter for screening for malignant neoplasm of colon (principal); Z86.010 Personal history of colon polyps; Z80.0 Family history of malignant neoplasm of digestive organs; K62.1 Rectal polyp; R19.7 Diarrhea, unspecified; K57.30 Diverticulosis of large intestine without perforation or abscess without bleeding; K64.8 Other hemorrhoids; K21.9 Gastro-esophageal reflux disease without esophagitis; I10 Essential (primary) hypertension; M19.90 Unspecified osteoarthritis, unspecified site; G47.00 Insomnia, unspecified; F41.8 Other specified anxiety disorders; Z79.899 Other long term (current) drug therapy
CPT/HCPCS: 45385; 45380; 88305

== ENCOUNTER 2022-02-09 13:33 | Outpatient (REF) | payer OTHER, SELFPAY ==
[2022-02-09 13:42] LABS: MANUAL DIFF FLAG NO
[2022-02-09 14:50] LABS: Basophils Percent Auto 0.5 % (0-2); Eosinophils Absolute Auto 0.1 X10*3/uL (0.0-0.4); Eosinophils Percent Auto 0.9 % (0-4); Hemoglobin 14.6 g/dl (14.0-18.0); Imm Gran Abs Auto 0.02 X10*3/uL (0.00-0.03); Imm Gran Pct Auto 0.3 % (0.0-0.4); Lymphocytes Absolute Auto 1.7 X10*3/uL (1.2-4.9); Lymphocytes Percent Auto 29.4 % (20-40); Mean Corpuscular HGB Conc 33.2 g/dl (31.0-36.0); Mean Corpuscular Volume 90.3 fL (80.0-98.0); Mean Platelet Volume 9.6 fL (9.4-12.4); Monocytes Absolute Auto 0.7 X10*3/uL (0.1-1.2); Neutrophils Absolute Auto 3.3 x10*3/uL (2.0-8.3); Neutrophils Percent Auto 56.9 % (45-73); Platelet Count 253 X10*3/uL (160-400); Red Blood Count 4.87 X10*6/uL (4.60-5.80); White Blood Count 5.8 X10*3/uL (4.8-10.8)
[2022-02-09 15:23] LABS: Alanine Aminotransferase 46 U/L (0-40); Albumin Level 4.5 g/dL (3.5-5.0); Alkaline Phosphatase 54 U/L (39-117); Anion Gap 10 (12-20); Aspartate Amino Transferase 26 U/L (5-37); Bilirubin Total 0.3 mg/dL (0.0-1.0); Blood Urea Nitrogen 28 mg/dL (9-16); Calcium 9.3 mg/dL (8.4-10.2); Carbon Dioxide 30 mmol/L (22-29); Chloride 101 mmol/L (96-108); Estimated Glomerular Filt Rate 53; Glucose Random 106 mg/dL (60-115); Potassium 3.2 mmol/L (3.3-5.1); Sodium 138 mmol/L (135-145); Total Protein 7.5 g/dL (6.5-8.0)
[2022-02-09 15:57] LABS: Vitamin B12 352 pg/mL (200-900)
[2022-02-11 14:08] LABS: Immunoglobulin A 512 mg/dL (47-310)
== END 2022-02-09 13:34 | disposition home or self-care (01) ==
LOC: HO.LAB 13:33
PROVIDERS: PCP Family Medicine; Visit Provider Internal Medicine Gastroenterology
DX: R14.0 Abdominal distension (gaseous) (principal); D12.6 Benign neoplasm of colon, unspecified; R10.10 Upper abdominal pain, unspecified; R79.89 Other specified abnormal findings of blood chemistry; K76.0 Fatty (change of) liver, not elsewhere classified; K52.9 Noninfective gastroenteritis and colitis, unspecified; K21.9 Gastro-esophageal reflux disease without esophagitis
CPT/HCPCS: 36415; 80053; 82607; 82746; 82784; 85025; 86140; 99212

== ENCOUNTER 2022-03-20 09:33 | Outpatient (REF) | payer OTHER, SELFPAY ==
[2022-03-20 10:15] LABS: INTERNATIONAL NORM RATIO 1.1 (0.9-1.1); Prothrombin Time 12.9 SEC (10.0-13.1)
[2022-03-20 11:28] LABS: Alanine Aminotransferase 27 U/L (0-40); Albumin Level 4.8 g/dL (3.5-5.0); Alkaline Phosphatase 57 U/L (39-117); Anion Gap 14 (12-20); Aspartate Amino Transferase 17 U/L (5-37); Bilirubin Direct < 0.2 mg/dL (0.0-0.5); Bilirubin Total 0.4 mg/dL (0.0-1.0); Blood Urea Nitrogen 21 mg/dL (9-16); C Reactive Protein < 0.10 mg/dL (< or = 0.50); Calcium 10.3 mg/dL (8.4-10.2); Carbon Dioxide 27 mmol/L (22-29); Chloride 104 mmol/L (96-108); Estimated Glomerular Filt Rate > 60; Glucose Random 121 mg/dL (60-115); Potassium 3.7 mmol/L (3.3-5.1); Sodium 141 mmol/L (135-145); Total Protein 8.1 g/dL (6.5-8.0)
[2022-03-20 11:36] LABS: Vitamin D 25-OH Total 45.9 ng/mL (>30)
[2022-03-20 12:05] LABS: HBS Num1 0.03 mIU/mL (0-7.99); HBc Num1 0.06 S/CO (0.00-0.79); Hepatitis B Core Antibody Nonreactive (Nonreactive); ~Hepatitis B Surface Antibody NONREACTIVE (Nonreactive)
[2022-03-20 12:26] LABS: Hepatitis A Antibody IgG Nonreactive (Nonreactive); ~Hepatitis A Antibody IgG 0.29 S/CO (0.00-0.99)
[2022-03-22 13:03] LABS: Ceruloplasmin 21 mg/dL (18-36)
[2022-04-01 15:38] LABS: A1A Clinical Indication NG
== END 2022-03-20 09:34 | disposition home or self-care (01) ==
LOC: HO.LAB 09:33
PROVIDERS: PCP Family Medicine; Visit Provider Internal Medicine Gastroenterology
DX: K52.9 Noninfective gastroenteritis and colitis, unspecified (principal); R79.89 Other specified abnormal findings of blood chemistry; E55.9 Vitamin D deficiency, unspecified
CPT/HCPCS: 36415; 80048; 80076; 82104; 82306; 82390; 85610; 86140; 86704; 86706; 86708

== ENCOUNTER 2022-03-29 09:28 | Outpatient (REF) | payer OTHER, SELFPAY ==
--- NOTE | ~2022-03-29 | XR_ITS ---
EXAMINATION: XR HAND, RIGHT CLINICAL INFORMATION: Pain COMPARISON: March 2020 TECHNIQUE: PA, lateral, and oblique views of the right hand. FINDINGS: The bones and soft tissues are normal. No fracture. Alignment is anatomic. Joint spaces are maintained. No erosions or soft tissue calcifications. XR/XR hand RT min 3V IMPRESSION: No significant osseous changes to explain patient's pain symptoms.
== END 2022-03-29 09:29 | disposition home or self-care (01) ==
LOC: HO.HOSX 09:28
PROVIDERS: PCP Family Medicine; Visit Provider Orthopaedic Surgery
DX: M79.641 Pain in right hand (principal); M79.642 Pain in left hand; R20.0 Anesthesia of skin; R20.2 Paresthesia of skin
CPT/HCPCS: 73130; 99202

== ENCOUNTER → 2022-05-25 11:31 | Outpatient (BNVA) | payer OTHER, SELFPAY | PROVIDERS: PCP Family Medicine; Visit Provider Internal Medicine Gastroenterology | DX: K52.9 Noninfective gastroenteritis and colitis, unspecified (principal); K76.0 Fatty (change of) liver, not elsewhere classified; R79.89 Other specified abnormal findings of blood chemistry; R10.9 Unspecified abdominal pain; R14.0 Abdominal distension (gaseous); K21.9 Gastro-esophageal reflux disease without esophagitis; E55.9 Vitamin D deficiency, unspecified; D47.2 Monoclonal gammopathy; Z86.010 Personal history of colon polyps | CPT/HCPCS: 99212 ==

== ENCOUNTER 2022-06-08 09:55 | Outpatient (REF) | payer OTHER, SELFPAY ==
--- NOTE | 2022-06-08 09:59 | EMG_ITS ---
Bilateral median and ulnar motor and sensory studies were performed. Bilateral radial sensory studies were performed and paraspinal muscles were tested with a needle. IMPRESSION: 1. 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 2. Mild to moderate right and mild left ulnar neuropathy across cubital tunnel. MD JACQUELINE Borden/IKE / [id number]
== END 2022-06-08 09:56 | disposition home or self-care (01) ==
LOC: HO.NEURO 09:55
PROVIDERS: PCP Family Medicine; Visit Provider Orthopaedic Surgery
DX: R20.0 Anesthesia of skin (principal); R20.2 Paresthesia of skin
CPT/HCPCS: 95886; 95911

== ENCOUNTER → 2022-06-27 11:40 | Outpatient (BNVA) | payer OTHER, SELFPAY | PROVIDERS: PCP Otolaryngology; Visit Provider Orthopaedic Surgery | DX: G56.03 Carpal tunnel syndrome, bilateral upper limbs (principal); G56.23 Lesion of ulnar nerve, bilateral upper limbs | CPT/HCPCS: 99212 ==

== ENCOUNTER 2022-07-20 09:18 | Day surgery (SDC) | payer OTHER, SELFPAY ==
--- NOTE | 2022-07-20 10:43 | W.PM.OPN ---
Operative Note Operative Note Date of Service: 07/20/22 Narrative: Preop diagnosis: 1. right Carpal tunnel syndrome Postop diagnosis: same Procedure: 1. right Carpal tunnel release Surgeon: Sendy Diana MD Anesthesia: local block using 1% lidocaine with epinephrine Findings: Thickened transverse carpal ligament. EBL: Less than 5 mL Specimens: None Complications: None Disposition: Brought to recovery room in stable condition Plan: Follow-up for 10-14 days for wound check and suture removal Indications: The patient is 57 years old, with right carpal tunnel syndrome that has been unresponsive to nonoperative management. The risks and benefits of operative treatment including but not limited to risk of damage to blood vessels, nerves, tendons, infection, persistent pain, persistent symptoms, or possible need for additional surgery were discussed with the patient and the patient wishes to proceed with surgery. Procedure: Once consent was obtained a local block was performed using a combination of 1% lidocaine with epinephrine. The patient was then brought back to the operating suite and placed on the operative table in supine position. The right upper extremity was prepped and draped in a standard surgical fashion. Once assured that we had a good block, a 2.0 cm longitudinal incision was made centered over the carpal tunnel. The incision was made through the skin to the subcutaneous tissues using a #15 blade. Dissection was made down to the level of the transverse carpal ligament with care being taken to protect the palmar cutaneous nerve. Once the transverse carpal ligament was clearly visualized, a longitudinal incision was made in the transverse carpal ligament 1st using a #15 blade, then using tenotomy scissors under direct visualization. Care was taken to look for and protect the motor branch of the median nerve when seen in this area. Once satisfied with our carpal tunnel release the wound was copiously irrigated with normal saline and hemostasis was obtained with a brief period of local pressure. The skin edges were reapproximated with some 5.0 nylon suture material and a sterile dressing was applied. The patient appears to have tolerated the procedure well and with no complications. All digits were well vascularized at the conclusion of the case.
[2022-07-20 12:51] VITALS: BMI 29.1
[2022-07-20 12:54] VITALS: BP 112/72; PULSE 49; RESP 16; TEMP 36.2; O2SAT 98
--- NOTE | 2022-07-20 13:39 | MHC.SHP ---
Pre-Procedural Eval Section A Date of Service: 07/20/22 The patient is an INPATIENT: No Changes since office visit: No Cold of Flu in the past 2 weeks, No New Medical Problems, No Changes in Medication and No Patient answered all questions The History & Physical has been completed within 30 days and I have reviewed it.: Yes Section B Chief Complaint: Carpal tunnel syndrome, right upper limb Allergies: Allergies Allergy/AdvReac Type Severity Reaction Status Date / Time No Known Allergies Allergy Verified 06/27/22 11:57 [No Known Allergies*] Plan I have reviewed the history and physical and performed a pertinent physical examination on my patient. No changes have occurred unless specified. Time Spent With Patient Time: Total time managing care of this patient today ____ minutes.
[2022-07-20 15:00] VITALS: BP 127/75; PULSE 65; RESP 18; O2SAT 98
== END 2022-07-20 15:01 | disposition home or self-care (01) ==
PROVIDERS: PCP Family Medicine; Visit Provider Orthopaedic Surgery
PROC: (CPT 64721; principal; 2022-07-20 12:50)
DX: G56.01 Carpal tunnel syndrome, right upper limb (principal); R20.0 Anesthesia of skin; I10 Essential (primary) hypertension; F41.8 Other specified anxiety disorders; M54.9 Dorsalgia, unspecified; M19.90 Unspecified osteoarthritis, unspecified site; G47.00 Insomnia, unspecified
CPT/HCPCS: 64721; J0171